=== PATIENT | female | born 1945 | race Caucasian/White ===

== ENCOUNTER 2021-11-29 12:15 | Emergency (ER) | payer BC, MEDICAID ==
[~2021-11-29] VITALS: Ht 154.9 cm; Wt 67.1 kg
[2021-11-29 12:15] VITALS: BP_SYST 167
[2021-11-29 13:19] VITALS: BP_SYST 151
== END 2021-11-29 13:17 | disposition home or self-care (01) ==
LOC: SED 12:15
DX: S09.90XA Unspecified injury of head, initial encounter (principal); X58.XXXA Exposure to other specified factors, initial encounter; Y93.89 Activity, other specified; Y92.89 Other specified places as the place of occurrence of the external cause; Y99.8 Other external cause status
CPT/HCPCS: 70450-TC; 76376; 99284

== ENCOUNTER 2023-01-25 13:12 | Inpatient (IN) | payer BC, MEDICAID ==
[~2023-01-25] VITALS: Ht 154.9 cm; Wt 75.9 kg
[~2023-01-25 13:12] MED LIST: ALEN70TA84 PO; AMIO100T4 PO; APIX2.5T PO; BENZ1LOZ73 PO; CALC1CAP19 PO; CHOL4PAC20 PO; DICL100G33 TP; FOLI-43 PO; FOLI0.8T42 PO; FURO-150 PO; HYD10 PO; IBUP-1970 PO; LEVO88TA5 PO; LIP40 PO; LOPE2CAP PO; METO25TA3 PO; NITSL SL; OMEP40CA20 PO; OXYB5TAB16 PO; POTA-197 PO; SACC250C3 PO; SPIR25TA6 PO; TRAM50TA2 PO; VITD2000 PO; XALEYE OP
[2023-01-25 13:20] VITALS: BP_SYST 126; PULSE 94; RESP 37; TEMP 100.5; O2SAT 96
[2023-01-25 14:40] LABS: HEMATOCRIT 28.5 % (36-48); HEMOGLOBIN 8.9 g/dL (12.0-16.0); MEAN CORPUSCULAR HEMOGLOBIN 30 pg (27-31); MEAN CORPUSCULAR HGB CONC 31 % (32-36); MEAN CORPUSCULAR VOLUME 96 fL (79.0-98.0); PLATELET COUNT (AUTO) 152 K/uL (130-430); RED BLOOD CELL COUNT(AUTO) 2.96 MIL/uL (4.2-6.2); WHITE BLOOD COUNT (AUTO) 12.5 K/uL (4.8-10.8)
[2023-01-25 14:49] LABS: ANION GAP 7 (5-15); CALCIUM 7.9 mg/dL (8.4-11.0); CARBON DIOXIDE 32 mmol/L (23-29); CHLORIDE 107 mmol/L (98-107); CREATININE 1.11 mg/dL (0.55-1.30); GLUCOSE 84 mg/dL (74-106); POTASSIUM 3.6 mmol/L (3.5-5.1); SODIUM SERUM 146 mmol/L (136-145); UREA NITROGEN, BLOOD 15 mg/dL (8-21)
[2023-01-25 14:52] LABS: INR 1.1 (0.8-1.2); PROTHROMBIN TIME 11.5 SECS (9.5-12.5)
[2023-01-25 15:03] LABS: BAND % (MANUAL) 3 % (0-6); BASOPHILS % (MANUAL) 0 % (0-2); EOSINOPHILS % (MANUAL) 0 % (0-7); LYMPHOCYTES % (MANUAL) 3 % (20-46); METAMYELOCYTES % 1 % (0-0); MONOCYTES % (MANUAL) 6 % (0-11); MYELOCYTES % 2 % (0-0)
[2023-01-25 15:04] LABS: ANISOCYTOSIS 1+; PLATELET ESTIMATE ADEQUATE (ADEQUATE)
[2023-01-25] MEDS ORDERED: guaiFENesin/DEXTROMETHORPHAN 10 ML UDC PO ONE (15:15)
[2023-01-25 15:23] LABS: ALANINE AMINOTRANSFERASE 58 U/L (12-78); ALBUMIN 2.6 g/dL (3.4-4.8); ASPARTATE AMINOTRANSFERASE 76 U/L (10-37); TOTAL BILIRUBIN 0.9 mg/dL (0.0-1.0); TOTAL PROTEIN, SERUM 6.1 g/dL (6.4-8.3)
[2023-01-25 15:26] LABS: INFLUENZA TYPE A positive (NEGATIVE)
[2023-01-25 15:30] LABS: INFLUENZA TYPE B POSITIVE (NEGATIVE)
[2023-01-25] MEDS ORDERED: OSELTAMIVIR PHOSPHATE 75 MG CAPSULE PO ONE (15:30)
[2023-01-25] MEDS ORDERED: FUROSEMIDE 20 MG/2 ML VIAL IVP ONE (15:45)
[2023-01-25 20:30] VITALS: BP_SYST 125; PULSE 78; RESP 18; TEMP 97.8; O2SAT 98
[2023-01-25] MEDS ORDERED: IBUPROFEN 800 MG TABLET PO PRN (23:45)
[2023-01-25] MEDS ORDERED: ONDANSETRON HCL 4 MG/2 ML VIAL IVP PRN (23:45)
[2023-01-25] MEDS ORDERED: NITROGLYCERIN 0.4 MG TAB.SUBL SL PRN (23:45)
[2023-01-25] MEDS ORDERED: traMADol HCL HCL 50 MG TABLET (ULTRAM) PO PRN (23:45)
[2023-01-25] MEDS ORDERED: IPRATROPIUM BROM 0.5 MG/2.5 ML VIAL.NEB (ATROVENT) INH PRN (23:45)
[2023-01-25] MEDS ORDERED: HYDROcodone/ACETAMIN 5-325 MG TAB (NORCO/ VICODIN) PO PRN (23:45)
[2023-01-25] MEDS ORDERED: oxyBUTYnin chloride 5 MG TABLET PO SCH (23:45)
[2023-01-25] MEDS ORDERED: ALBUTEROL SULFATE 0.083% 2.5 MG/3 ML VIAL.NEB INH PRN (23:45)
[2023-01-25] MEDS ORDERED: NALOXONE HCL 0.4 MG/ML AMP (NARCAN) IVP PRN ×2 (23:45)
[2023-01-25] MEDS ORDERED: BENZOCAINE/MENTHOL 1 EACH LOZENGE PO PRN (23:45)
[2023-01-25] MEDS ORDERED: HYDROcodone/ACETAMIN 10-325 MG TAB PO PRN (23:45)
[2023-01-25] MEDS ORDERED: ALENDRONATE SODIUM 70 MG TABLET (FOSAMAX) PO SCH (23:45)
[2023-01-25] MEDS ORDERED: LOPERAMIDE HCL 2 MG CAPSULE PO PRN (23:45)
[2023-01-25] MEDS ORDERED: ACETAMINOPHEN 325 MG TABLET PO PRN (23:45)
[2023-01-26] VITALS (27 sets, daily range): BP systolic 76–140; PULSE 70–190; RESP 20–39; TEMP 97.3–100.1; O2SAT 91–100
[2023-01-26] MEDS ORDERED: NON-FORMULARY MEDICATION (Diclofenac Sodium 1 APPLIC) TP SCH
[2023-01-26] MEDS ORDERED: dilTIAZem HCL IVP 5 MG/ML VIAL IVP PRN (04:45)
[2023-01-26] MEDS: NORMAL SALINE 5 ML DISP.SYRIN IVF SCH ×3 (05:15→23:44)
[2023-01-26] MEDS ORDERED: AMIODARONE HCL 150 MG in D5W 100 ML IV ONE (05:30)
[2023-01-26] MEDS: CARVEDILOL 3.125 MG TABLET (COREG) PO SCH ×3 (05:51→21:00)
[2023-01-26 05:58] LABS: BILIRUBIN,URINE NEGATIVE (NEGATIVE); CLARITY/URINE CLEAR (CLEAR); COLOR,URINE YELLOW (YELLOW); GLUCOSE,URINE NEGATIVE (NEGATIVE); KETONES,URINE NEGATIVE (NEGATIVE); LEUKOCYTE ESTERASE ,URINE TRACE (NEGATIVE); NITRITE, URINE NEGATIVE (NEGATIVE); PROTEIN URINE TRACE (NEGATIVE); UROBILINOGEN,URINE 0.2 (0.2-1.0)
[2023-01-26] MEDS ORDERED: AMIODARONE HCL 150 MG/3ML VIAL ONE (06:05)
[2023-01-26 06:07] LABS: BASOPHILS % (AUTO) 0.5 % (0.0-2.0); EOSINOPHILS % (AUTO) 0.5 % (0.0-4.0); HEMATOCRIT 28.5 % (36-48); HEMOGLOBIN 8.9 g/dL (12.0-16.0); LYMPHOCYTES % (AUTO) 10.5 % (20.5-51.5); MEAN CORPUSCULAR HEMOGLOBIN 30 pg (27-31); MEAN CORPUSCULAR HGB CONC 31 % (32-36); MEAN CORPUSCULAR VOLUME 96 fL (79.0-98.0); MONOCYTES # (AUTO) 0.4 K/uL (0.0-1.0); MONOCYTES % (AUTO) 4.5 % (1.7-9.3); NEUTROPHILS # (AUTO) 8.3 K/uL (1.8-7.7); PLATELET COUNT (AUTO) 142 K/uL (130-430); RED BLOOD CELL COUNT(AUTO) 2.98 MIL/uL (4.2-6.2); RED CELL DISTRIBUTION WIDTH 15.9 % (9.0-15.0); WHITE BLOOD COUNT (AUTO) 9.8 K/uL (4.8-10.8)
[2023-01-26 06:09] LABS: BLOOD, URINE TRACE (NEGATIVE)
[2023-01-26 06:15] LABS: BACTERIA,URINE FEW /HPF (None Seen)
[2023-01-26] MEDS ORDERED: AMIODARONE HCL 450 MG/9 ML VIAL IV ONE (06:47)
[2023-01-26] MEDS: AMIODARONE HCL 450 MG in D5W 241 ML IV SCH ×2 (06:58→16:01)
[2023-01-26] MEDS: LEVOTHYROXINE SODIUM 0.088 MG TABLET PO SCH ×2 (07:00→11:29)
[2023-01-26] MEDS ORDERED: ACETAMINOPHEN 325 MG TABLET PO PRN (07:00)
[2023-01-26] MEDS ORDERED: NS 1000 ML IV.SOLN IV ONE (07:15)
[2023-01-26] MEDS ORDERED: NS 500 ML IV ONE (07:30)
[2023-01-26 07:31] LABS: ANION GAP 10 (5-15); CALCIUM 7.8 mg/dL (8.4-11.0); CARBON DIOXIDE 31 mmol/L (23-29); CHLORIDE 101 mmol/L (98-107); CREATININE 1.12 mg/dL (0.55-1.30); GLUCOSE 68 mg/dL (74-106); POTASSIUM 3.2 mmol/L (3.5-5.1); SODIUM SERUM 142 mmol/L (136-145); UREA NITROGEN, BLOOD 18 mg/dL (8-21)
[2023-01-26] MEDS ORDERED: NOREPINEPHRINE BITARTRATE 4 MG in D5W 246 ML IV PRN (08:30)
[2023-01-26] MEDS ORDERED: METOPROLOL SUCCINATE 25 MG TAB.SR.24H (TOPROL XL) PO SCH (09:00)
[2023-01-26] MEDS ORDERED: FUROSEMIDE 20 MG TABLET PO SCH (09:00)
[2023-01-26] MEDS: CALCIUM CARBONATE/VITAMIN D3 1 TAB TABLET PO SCH ×3 (09:00→23:43)
[2023-01-26] MEDS: HYDROCORTISONE 10 MG TABLET (CORTEF) PO SCH ×2 (09:00→23:40)
[2023-01-26] MEDS: LACTOBACILLUS RHAMNOSUS GG 1 CAP CAPSULE PO SCH ×2 (09:00→23:40)
[2023-01-26] MEDS ORDERED: POTASSIUM CHLORIDE 40 MEQ in NS 250 ML IV ONE (09:00)
[2023-01-26] MEDS: FOLIC ACID 1 MG TABLET PO SCH (11:03)
[2023-01-26] MEDS: NEPHROVITE, (FOLIC ACID/VITAMIN B COMP W-C 1 TAB) PO SCH (11:03)
[2023-01-26] MEDS: POTASSIUM CHLORIDE 20 MEQ TAB.PRT.SR PO SCH (11:04)
[2023-01-26] MEDS: CHOLECALCIFEROL (VITAMIN D3) 2,000 UNIT TABLET PO SCH (11:04)
[2023-01-26] MEDS: AMIODARONE HCL 200 MG TABLET PO SCH (11:04)
[2023-01-26] MEDS: LOSARTAN POTASSIUM 25 MG TABLET PO SCH (11:04)
[2023-01-26] MEDS: PANTOPRAZOLE SODIUM 40 MG TAB PO SCH (11:04)
[2023-01-26] MEDS: APIXABAN 2.5 MG TABLET PO SCH ×2 (11:05→23:41)
[2023-01-26] MEDS: SPIRONOLACTONE 25 MG TABLET (ALDACTONE) PO SCH (11:30)
[2023-01-26] MEDS: CHOLESTYRAMINE/SUCROSE 4 GM/PACKET PO SCH (11:31)
[2023-01-26] MEDS ORDERED: DEXTROSE 50% JECT 50 ML DISP.SYRIN IVP PRN (13:30)
[2023-01-26] MEDS ORDERED: MAGNESIUM SULFATE 1 GM/2 ML VIAL IVP ONE (15:00)
[2023-01-26] MEDS ORDERED: MAGNESIUM SUL 2 GM/50 ML PREMIX IV ONE (15:30)
[2023-01-26 16:33] LABS: INR 1.5 (0.8-1.2); PROTHROMBIN TIME 15.3 SECS (9.5-12.5)
[2023-01-26] MEDS: dilTIAZem HCL IVP 5 MG/ML VIAL IVP PRN (17:40)
[2023-01-26] MEDS ORDERED: ATORVASTATIN 20 MG TABLET PO SCH (21:00)
[2023-01-26] MEDS ORDERED: AZITHROMYCIN 500 MG/VIAL (ZITHROMAX) IV ONE (23:10)
[2023-01-26] MEDS ORDERED: cefTRIAXone 1 GM VIAL ONE (23:10)
[2023-01-26] MEDS: AZITHROMYCIN 500 MG in NS 250 ML IV SCH (23:37)
[2023-01-26] MEDS: LATANOPROST 2.5 ML DROPS (XALATAN) OP SCH (23:38)
[2023-01-26] MEDS: ATORVASTATIN 20 MG TABLET PO SCH (23:42)
[2023-01-26] MEDS: OSELTAMIVIR PHOSPHATE 75 MG CAPSULE PO SCH (23:43)
[2023-01-27] VITALS (28 sets, daily range): BP systolic 83–141; PULSE 60–86; RESP 18–44; TEMP 97.3–98.8; O2SAT 90–99
[2023-01-27 04:33] LABS: BASOPHILS # (AUTO) 0.1 K/uL (0.0-0.2); BASOPHILS % (AUTO) 0.5 % (0.0-2.0); EOSINOPHILS % (AUTO) 0.1 % (0.0-4.0); HEMATOCRIT 27.5 % (36-48); HEMOGLOBIN 8.5 g/dL (12.0-16.0); LYMPHOCYTES # (AUTO) 0.5 K/uL (1.0-5.5); LYMPHOCYTES % (AUTO) 3.6 % (20.5-51.5); MEAN CORPUSCULAR HEMOGLOBIN 29 pg (27-31); MEAN CORPUSCULAR HGB CONC 31 % (32-36); MEAN CORPUSCULAR VOLUME 95 fL (79.0-98.0); MONOCYTES # (AUTO) 0.6 K/uL (0.0-1.0); MONOCYTES % (AUTO) 4.4 % (1.7-9.3); NEUTROPHILS # (AUTO) 11.6 K/uL (1.8-7.7); NEUTROPHILS % (AUTO) 91.4 % (40.0-70.0); PLATELET COUNT (AUTO) 156 K/uL (130-430); RED BLOOD CELL COUNT(AUTO) 2.91 MIL/uL (4.2-6.2); RED CELL DISTRIBUTION WIDTH 16.4 % (9.0-15.0); WHITE BLOOD COUNT (AUTO) 12.7 K/uL (4.8-10.8)
[2023-01-27 04:45] LABS: ERYTHROCYTE SEDIMENTATION RATE 50 MM/HR (0-20)
[2023-01-27 04:58] LABS: ALANINE AMINOTRANSFERASE 38 U/L (12-78); ALBUMIN 1.9 g/dL (3.4-4.8); ANION GAP 8 (5-15); ASPARTATE AMINOTRANSFERASE 61 U/L (10-37); CALCIUM 7.6 mg/dL (8.4-11.0); CARBON DIOXIDE 27 mmol/L (23-29); CHLORIDE 101 mmol/L (98-107); CREATININE 1.23 mg/dL (0.55-1.30); GLUCOSE 139 mg/dL (74-106); POTASSIUM 5.6 mmol/L (3.5-5.1); SODIUM SERUM 136 mmol/L (136-145); TOTAL BILIRUBIN 0.7 mg/dL (0.0-1.0); TOTAL PROTEIN, SERUM 5.4 g/dL (6.4-8.3); UREA NITROGEN, BLOOD 19 mg/dL (8-21)
[2023-01-27] MEDS: NORMAL SALINE 5 ML DISP.SYRIN IVF SCH ×3 (05:15→21:15)
[2023-01-27] MEDS: LEVOTHYROXINE SODIUM 0.088 MG TABLET PO SCH (06:20)
[2023-01-27] MEDS: DEXAMETHASONE SOD PHOSPHATE 10 MG/ML VIAL IVP SCH ×2 (09:00→09:39)
[2023-01-27] MEDS: POTASSIUM CHLORIDE 20 MEQ TAB.PRT.SR PO SCH (09:00)
[2023-01-27] MEDS: CARVEDILOL 3.125 MG TABLET (COREG) PO SCH ×2 (09:26→21:11)
[2023-01-27] MEDS: FOLIC ACID 1 MG TABLET PO SCH (09:28)
[2023-01-27] MEDS: CALCIUM CARBONATE/VITAMIN D3 1 TAB TABLET PO SCH ×3 (09:28→21:14)
[2023-01-27] MEDS: HYDROCORTISONE 10 MG TABLET (CORTEF) PO SCH ×2 (09:28→21:13)
[2023-01-27] MEDS: SPIRONOLACTONE 25 MG TABLET (ALDACTONE) PO SCH (09:28)
[2023-01-27] MEDS: CHOLESTYRAMINE/SUCROSE 4 GM/PACKET PO SCH (09:29)
[2023-01-27] MEDS: AMIODARONE HCL 200 MG TABLET PO SCH (09:29)
[2023-01-27] MEDS: PANTOPRAZOLE SODIUM 40 MG TAB PO SCH (09:29)
[2023-01-27] MEDS: NEPHROVITE, (FOLIC ACID/VITAMIN B COMP W-C 1 TAB) PO SCH (09:30)
[2023-01-27] MEDS: LOSARTAN POTASSIUM 25 MG TABLET PO SCH (09:31)
[2023-01-27] MEDS: APIXABAN 2.5 MG TABLET PO SCH ×2 (09:31→21:12)
[2023-01-27] MEDS: LACTOBACILLUS RHAMNOSUS GG 1 CAP CAPSULE PO SCH ×2 (09:31→21:13)
[2023-01-27] MEDS: CHOLECALCIFEROL (VITAMIN D3) 2,000 UNIT TABLET PO SCH (09:33)
[2023-01-27] MEDS: OSELTAMIVIR PHOSPHATE 75 MG CAPSULE PO SCH ×2 (09:33→21:11)
[2023-01-27 10:40] LABS: BLOOD GAS BASE EXCESS 3.3 mmol/L (-3.0-3.0); BLOOD GAS HCO3 26.8 mmol/L (21.0-27.0); BLOOD GAS PCO2 37.4 mmHg (35.0-45.0); BLOOD GAS PH 7.473 (7.350-7.450); BLOOD GAS PO2 59.2 mmHg (75.0-100.0)
[2023-01-27 10:41] LABS: ABG O2 SAT% ESTIMATE 92.3 % (94.0-100.0); ALLEN'S TEST POSITIVE (P)
[2023-01-27] MEDS ORDERED: FUROSEMIDE 40 MG/4 ML VIAL IVP ONE (11:00)
[2023-01-27] MEDS: IPRATROPIUM/ALBUTEROL SULFATE 3 ML AMPUL.NEB (DUONEB) INH SCH ×4 (11:00→23:23)
[2023-01-27] MEDS: MICAFUNGIN SODIUM 100 MG in NS 100 ML IV SCH (12:17)
[2023-01-27] MEDS ORDERED: iohexoL 350 mgI/mL, 100 ML INFUS..BTL IV ONE (17:04)
[2023-01-27] MEDS: LORazepam 2 MG/ML VIAL IVP PRN (21:09)
[2023-01-27] MEDS: LATANOPROST 2.5 ML DROPS (XALATAN) OP SCH (21:09)
[2023-01-27] MEDS: ATORVASTATIN 20 MG TABLET PO SCH (21:13)
[2023-01-27] MEDS: AZITHROMYCIN 500 MG in NS 250 ML IV SCH (21:14)
[2023-01-28] VITALS (29 sets, daily range): BP systolic 77–134; PULSE 63–124; RESP 12–37; TEMP 97.3–98.1; O2SAT 89–99
[2023-01-28] MEDS: IPRATROPIUM/ALBUTEROL SULFATE 3 ML AMPUL.NEB (DUONEB) INH SCH ×6 (03:00→23:00)
[2023-01-28] MEDS: NORMAL SALINE 5 ML DISP.SYRIN IVF SCH ×3 (05:13→22:00)
[2023-01-28] MEDS: LEVOTHYROXINE SODIUM 0.088 MG TABLET PO SCH (08:17)
[2023-01-28] MEDS: CARVEDILOL 3.125 MG TABLET (COREG) PO SCH ×2 (09:00→21:00)
[2023-01-28 09:04] LABS: BASOPHILS # (AUTO) 0.1 K/uL (0.0-0.2); HEMATOCRIT 24.3 % (36-48); HEMOGLOBIN 7.7 g/dL (12.0-16.0); LYMPHOCYTES # (AUTO) 0.4 K/uL (1.0-5.5); LYMPHOCYTES % (AUTO) 4.5 % (20.5-51.5); MEAN CORPUSCULAR HEMOGLOBIN 30 pg (27-31); MEAN CORPUSCULAR HGB CONC 32 % (32-36); MEAN CORPUSCULAR VOLUME 94 fL (79.0-98.0); MONOCYTES # (AUTO) 0.3 K/uL (0.0-1.0); MONOCYTES % (AUTO) 3.7 % (1.7-9.3); NEUTROPHILS # (AUTO) 8.5 K/uL (1.8-7.7); NEUTROPHILS % (AUTO) 90.8 % (40.0-70.0); PLATELET COUNT (AUTO) 147 K/uL (130-430); RED BLOOD CELL COUNT(AUTO) 2.59 MIL/uL (4.2-6.2); RED CELL DISTRIBUTION WIDTH 15.6 % (9.0-15.0); WHITE BLOOD COUNT (AUTO) 9.3 K/uL (4.8-10.8)
[2023-01-28 09:20] LABS: ANION GAP 9 (5-15); CALCIUM 7.5 mg/dL (8.4-11.0); CARBON DIOXIDE 28 mmol/L (23-29); CHLORIDE 102 mmol/L (98-107); CREATININE 1.13 mg/dL (0.55-1.30); GLUCOSE 108 mg/dL (74-106); POTASSIUM 3.5 mmol/L (3.5-5.1); SODIUM SERUM 139 mmol/L (136-145); UREA NITROGEN, BLOOD 21 mg/dL (8-21)
[2023-01-28 09:25] LABS: ALANINE AMINOTRANSFERASE 33 U/L (12-78); ALBUMIN 1.9 g/dL (3.4-4.8); ASPARTATE AMINOTRANSFERASE 58 U/L (10-37); TOTAL BILIRUBIN 0.5 mg/dL (0.0-1.0); TOTAL PROTEIN, SERUM 5.4 g/dL (6.4-8.3)
[2023-01-28] MEDS: LACTOBACILLUS RHAMNOSUS GG 1 CAP CAPSULE PO SCH ×2 (09:42→21:00)
[2023-01-28] MEDS: CALCIUM CARBONATE/VITAMIN D3 1 TAB TABLET PO SCH ×3 (09:43→21:00)
[2023-01-28] MEDS: NEPHROVITE, (FOLIC ACID/VITAMIN B COMP W-C 1 TAB) PO SCH (09:44)
[2023-01-28] MEDS: POTASSIUM CHLORIDE 20 MEQ TAB.PRT.SR PO SCH (09:46)
[2023-01-28] MEDS: APIXABAN 2.5 MG TABLET PO SCH ×2 (09:47→21:00)
[2023-01-28] MEDS: OSELTAMIVIR PHOSPHATE 75 MG CAPSULE PO SCH ×2 (09:47→21:00)
[2023-01-28] MEDS: CHOLECALCIFEROL (VITAMIN D3) 2,000 UNIT TABLET PO SCH (09:48)
[2023-01-28] MEDS: AMIODARONE HCL 200 MG TABLET PO SCH (09:52)
[2023-01-28] MEDS: FUROSEMIDE 40 MG/4 ML VIAL IVP SCH (09:52)
[2023-01-28] MEDS: CHOLESTYRAMINE/SUCROSE 4 GM/PACKET PO SCH (09:53)
[2023-01-28] MEDS: DEXAMETHASONE SOD PHOSPHATE 10 MG/ML VIAL IVP SCH (09:53)
[2023-01-28] MEDS: PANTOPRAZOLE SODIUM 40 MG TAB PO SCH (09:53)
[2023-01-28] MEDS: HYDROCORTISONE 10 MG TABLET (CORTEF) PO SCH ×2 (09:54→21:00)
[2023-01-28] MEDS: FOLIC ACID 1 MG TABLET PO SCH (09:56)
[2023-01-28] MEDS: MICAFUNGIN SODIUM 100 MG in NS 100 ML IV SCH (12:00)
[2023-01-28] MEDS: dilTIAZem HCL IVP 5 MG/ML VIAL IVP PRN (20:00)
[2023-01-28] MEDS: LORazepam 2 MG/ML VIAL IVP PRN (20:00)
[2023-01-28] MEDS: ATORVASTATIN 20 MG TABLET PO SCH (21:00)
[2023-01-28] MEDS: LATANOPROST 2.5 ML DROPS (XALATAN) OP SCH (21:00)
[2023-01-29] VITALS (27 sets, daily range): BP systolic 95–145; PULSE 73–117; RESP 18–60; TEMP 96.6–98.2; O2SAT 89–100
[2023-01-29] MEDS: IPRATROPIUM/ALBUTEROL SULFATE 3 ML AMPUL.NEB (DUONEB) INH SCH ×6 (03:00→23:27)
[2023-01-29] MEDS: NORMAL SALINE 5 ML DISP.SYRIN IVF SCH ×3 (05:02→21:22)
[2023-01-29 05:28] LABS: BASOPHILS % (AUTO) 0.1 % (0.0-2.0); HEMATOCRIT 23.5 % (36-48); HEMOGLOBIN 7.5 g/dL (12.0-16.0); LYMPHOCYTES # (AUTO) 0.5 K/uL (1.0-5.5); LYMPHOCYTES % (AUTO) 5.2 % (20.5-51.5); MEAN CORPUSCULAR HEMOGLOBIN 30 pg (27-31); MEAN CORPUSCULAR HGB CONC 32 % (32-36); MEAN CORPUSCULAR VOLUME 93 fL (79.0-98.0); MONOCYTES # (AUTO) 0.5 K/uL (0.0-1.0); MONOCYTES % (AUTO) 5.2 % (1.7-9.3); NEUTROPHILS # (AUTO) 8.9 K/uL (1.8-7.7); NEUTROPHILS % (AUTO) 89.5 % (40.0-70.0); PLATELET COUNT (AUTO) 146 K/uL (130-430); RED BLOOD CELL COUNT(AUTO) 2.53 MIL/uL (4.2-6.2); RED CELL DISTRIBUTION WIDTH 15.9 % (9.0-15.0)
[2023-01-29 05:40] LABS: ANION GAP 7 (5-15); CALCIUM 7.4 mg/dL (8.4-11.0); CARBON DIOXIDE 30 mmol/L (23-29); CHLORIDE 102 mmol/L (98-107); GLUCOSE 133 mg/dL (74-106); POTASSIUM 3.5 mmol/L (3.5-5.1); SODIUM SERUM 139 mmol/L (136-145); UREA NITROGEN, BLOOD 22 mg/dL (8-21)
[2023-01-29] MEDS: LORazepam 2 MG/ML VIAL IVP PRN (05:56)
[2023-01-29] MEDS: LEVOTHYROXINE SODIUM 0.088 MG TABLET PO SCH (08:01)
[2023-01-29] MEDS: OSELTAMIVIR PHOSPHATE 75 MG CAPSULE PO SCH ×2 (09:35→21:24)
[2023-01-29] MEDS: HYDROCORTISONE 10 MG TABLET (CORTEF) PO SCH ×2 (09:35→21:23)
[2023-01-29] MEDS: APIXABAN 2.5 MG TABLET PO SCH ×2 (09:37→21:26)
[2023-01-29] MEDS: CARVEDILOL 3.125 MG TABLET (COREG) PO SCH ×2 (09:38→21:23)
[2023-01-29] MEDS: NEPHROVITE, (FOLIC ACID/VITAMIN B COMP W-C 1 TAB) PO SCH (09:38)
[2023-01-29] MEDS: LACTOBACILLUS RHAMNOSUS GG 1 CAP CAPSULE PO SCH ×2 (09:38→21:24)
[2023-01-29] MEDS: AMIODARONE HCL 200 MG TABLET PO SCH (09:39)
[2023-01-29] MEDS: FUROSEMIDE 40 MG/4 ML VIAL IVP SCH (09:46)
[2023-01-29] MEDS: DEXAMETHASONE SOD PHOSPHATE 10 MG/ML VIAL IVP SCH (09:47)
[2023-01-29] MEDS: FOLIC ACID 1 MG TABLET PO SCH (09:47)
[2023-01-29] MEDS: POTASSIUM CHLORIDE 20 MEQ TAB.PRT.SR PO SCH (09:48)
[2023-01-29] MEDS: CALCIUM CARBONATE/VITAMIN D3 1 TAB TABLET PO SCH ×3 (09:48→21:24)
[2023-01-29] MEDS: PANTOPRAZOLE SODIUM 40 MG TAB PO SCH (09:50)
[2023-01-29] MEDS: CHOLESTYRAMINE/SUCROSE 4 GM/PACKET PO SCH (09:51)
[2023-01-29] MEDS: CHOLECALCIFEROL (VITAMIN D3) 2,000 UNIT TABLET PO SCH (09:53)
[2023-01-29] MEDS: MICAFUNGIN SODIUM 100 MG in NS 100 ML IV SCH (11:51)
[2023-01-29] MEDS: AMPICILLIN SODIUM 1 GM in NS 50 ML IV SCH ×2 (14:23→18:18)
[2023-01-29] MEDS: LATANOPROST 2.5 ML DROPS (XALATAN) OP SCH (20:46)
[2023-01-29] MEDS: ATORVASTATIN 20 MG TABLET PO SCH (21:24)
[2023-01-30] VITALS (10 sets, daily range): BP systolic 115–136; PULSE 72–80; RESP 16–20; TEMP 96.2–97.7; O2SAT 94–100
[2023-01-30] MEDS: AMPICILLIN SODIUM 1 GM in NS 50 ML IV SCH ×4 (00:32→17:26)
[2023-01-30] MEDS: IPRATROPIUM/ALBUTEROL SULFATE 3 ML AMPUL.NEB (DUONEB) INH SCH ×6 (03:00→23:04)
[2023-01-30] MEDS: NORMAL SALINE 5 ML DISP.SYRIN IVF SCH ×3 (05:10→22:57)
[2023-01-30] MEDS: LEVOTHYROXINE SODIUM 0.088 MG TABLET PO SCH (06:06)
[2023-01-30 08:09] LABS: ANION GAP 8 (5-15); CALCIUM 7.4 mg/dL (8.4-11.0); CARBON DIOXIDE 30 mmol/L (23-29); CHLORIDE 100 mmol/L (98-107); CREATININE 1.12 mg/dL (0.55-1.30); GLUCOSE 126 mg/dL (74-106); POTASSIUM 3.7 mmol/L (3.5-5.1); SODIUM SERUM 138 mmol/L (136-145); UREA NITROGEN, BLOOD 24 mg/dL (8-21)
[2023-01-30] MEDS: HYDROCORTISONE 10 MG TABLET (CORTEF) PO SCH ×2 (09:47→20:27)
[2023-01-30] MEDS: FOLIC ACID 1 MG TABLET PO SCH (09:47)
[2023-01-30] MEDS: PANTOPRAZOLE SODIUM 40 MG TAB PO SCH (09:47)
[2023-01-30] MEDS: CHOLECALCIFEROL (VITAMIN D3) 2,000 UNIT TABLET PO SCH (09:47)
[2023-01-30] MEDS: POTASSIUM CHLORIDE 20 MEQ TAB.PRT.SR PO SCH (09:47)
[2023-01-30] MEDS: OSELTAMIVIR PHOSPHATE 75 MG CAPSULE PO SCH ×2 (09:47→20:27)
[2023-01-30] MEDS: LACTOBACILLUS RHAMNOSUS GG 1 CAP CAPSULE PO SCH ×2 (09:47→20:27)
[2023-01-30] MEDS: CALCIUM CARBONATE/VITAMIN D3 1 TAB TABLET PO SCH ×3 (09:51→20:28)
[2023-01-30] MEDS: NEPHROVITE, (FOLIC ACID/VITAMIN B COMP W-C 1 TAB) PO SCH (09:51)
[2023-01-30] MEDS: AMIODARONE HCL 200 MG TABLET PO SCH (09:51)
[2023-01-30] MEDS: CARVEDILOL 3.125 MG TABLET (COREG) PO SCH ×2 (09:52→20:27)
[2023-01-30] MEDS: CHOLESTYRAMINE/SUCROSE 4 GM/PACKET PO SCH (09:52)
[2023-01-30] MEDS: APIXABAN 2.5 MG TABLET PO SCH ×2 (10:01→20:33)
[2023-01-30] MEDS: DEXAMETHASONE SOD PHOSPHATE 10 MG/ML VIAL IVP SCH (10:09)
[2023-01-30] MEDS: FUROSEMIDE 40 MG/4 ML VIAL IVP SCH (10:09)
[2023-01-30] MEDS: MICAFUNGIN SODIUM 100 MG in NS 100 ML IV SCH (11:59)
[2023-01-30] MEDS: ATORVASTATIN 20 MG TABLET PO SCH (20:27)
[2023-01-30] MEDS: LATANOPROST 2.5 ML DROPS (XALATAN) OP SCH (20:54)
[2023-01-31] VITALS (8 sets, daily range): BP systolic 124–147; PULSE 69–83; RESP 16–20; TEMP 97–98.4; O2SAT 97–99
[2023-01-31] MEDS: IPRATROPIUM/ALBUTEROL SULFATE 3 ML AMPUL.NEB (DUONEB) INH SCH ×6 (02:32→23:13)
[2023-01-31] MEDS: AMPICILLIN SODIUM 1 GM in NS 50 ML IV SCH ×4 (03:19→18:40)
[2023-01-31] MEDS: LEVOTHYROXINE SODIUM 0.088 MG TABLET PO SCH (06:31)
[2023-01-31] MEDS: NORMAL SALINE 5 ML DISP.SYRIN IVF SCH ×3 (06:34→21:47)
[2023-01-31] MEDS: FOLIC ACID 1 MG TABLET PO SCH (09:27)
[2023-01-31] MEDS: NEPHROVITE, (FOLIC ACID/VITAMIN B COMP W-C 1 TAB) PO SCH (09:28)
[2023-01-31] MEDS: CALCIUM CARBONATE/VITAMIN D3 1 TAB TABLET PO SCH ×3 (09:28→21:46)
[2023-01-31] MEDS: APIXABAN 2.5 MG TABLET PO SCH ×2 (09:28→21:58)
[2023-01-31] MEDS: CHOLECALCIFEROL (VITAMIN D3) 2,000 UNIT TABLET PO SCH (09:28)
[2023-01-31] MEDS: LACTOBACILLUS RHAMNOSUS GG 1 CAP CAPSULE PO SCH ×2 (09:29→21:46)
[2023-01-31] MEDS: AMIODARONE HCL 200 MG TABLET PO SCH (09:29)
[2023-01-31] MEDS: CARVEDILOL 3.125 MG TABLET (COREG) PO SCH ×2 (09:29→21:56)
[2023-01-31] MEDS: FUROSEMIDE 40 MG/4 ML VIAL IVP SCH (09:30)
[2023-01-31] MEDS: DEXAMETHASONE SOD PHOSPHATE 10 MG/ML VIAL IVP SCH (09:30)
[2023-01-31] MEDS: CHOLESTYRAMINE/SUCROSE 4 GM/PACKET PO SCH (09:41)
[2023-01-31] MEDS: HYDROCORTISONE 10 MG TABLET (CORTEF) PO SCH ×2 (10:11→21:46)
[2023-01-31] MEDS: OSELTAMIVIR PHOSPHATE 75 MG CAPSULE PO SCH (10:11)
[2023-01-31] MEDS: POTASSIUM CHLORIDE 20 MEQ TAB.PRT.SR PO SCH (10:11)
[2023-01-31] MEDS: PANTOPRAZOLE SODIUM 40 MG TAB PO SCH (10:16)
[2023-01-31] MEDS: dilTIAZem HCL IVP 5 MG/ML VIAL IVP PRN (11:18)
[2023-01-31] MEDS ORDERED: COR3.125 PO (12:57)
[2023-01-31] MEDS ORDERED: AMOX-423 PO (13:00)
[2023-01-31] MEDS: LATANOPROST 2.5 ML DROPS (XALATAN) OP SCH (21:00)
[2023-01-31] MEDS: ATORVASTATIN 20 MG TABLET PO SCH (21:46)
[2023-02-01] VITALS (7 sets, daily range): BP systolic 153–155; PULSE 69–70; RESP 12–20; TEMP 97–97.9; O2SAT 92–98
[2023-02-01] MEDS: IPRATROPIUM/ALBUTEROL SULFATE 3 ML AMPUL.NEB (DUONEB) INH SCH ×2 (03:31→08:23)
[2023-02-01] MEDS: NORMAL SALINE 5 ML DISP.SYRIN IVF SCH (06:00)
[2023-02-01] MEDS: AMPICILLIN SODIUM 1 GM in NS 50 ML IV SCH ×3 (06:00)
[2023-02-01] MEDS: LEVOTHYROXINE SODIUM 0.088 MG TABLET PO SCH (07:00)
[2023-02-01] MEDS: NEPHROVITE, (FOLIC ACID/VITAMIN B COMP W-C 1 TAB) PO SCH (09:46)
[2023-02-01] MEDS: CHOLESTYRAMINE/SUCROSE 4 GM/PACKET PO SCH (09:46)
[2023-02-01] MEDS: POTASSIUM CHLORIDE 20 MEQ TAB.PRT.SR PO SCH (09:46)
[2023-02-01] MEDS: CALCIUM CARBONATE/VITAMIN D3 1 TAB TABLET PO SCH (09:46)
[2023-02-01] MEDS: PANTOPRAZOLE SODIUM 40 MG TAB PO SCH (09:46)
[2023-02-01] MEDS: APIXABAN 2.5 MG TABLET PO SCH (09:47)
[2023-02-01] MEDS: LACTOBACILLUS RHAMNOSUS GG 1 CAP CAPSULE PO SCH (09:48)
[2023-02-01] MEDS: AMIODARONE HCL 200 MG TABLET PO SCH (09:48)
[2023-02-01] MEDS: CARVEDILOL 3.125 MG TABLET (COREG) PO SCH (09:48)
[2023-02-01] MEDS: FUROSEMIDE 40 MG/4 ML VIAL IVP SCH (09:48)
[2023-02-01] MEDS: HYDROCORTISONE 10 MG TABLET (CORTEF) PO SCH (09:49)
[2023-02-01] MEDS: CHOLECALCIFEROL (VITAMIN D3) 2,000 UNIT TABLET PO SCH (09:49)
[2023-02-01] MEDS: FOLIC ACID 1 MG TABLET PO SCH (09:50)
[2023-02-03 06:06] LABS: COCCIDIOIDES AB IGG 0.2 IV (<=0.9); COCCIDIOIDES AB IGM 0.4 IV (<=0.9)
== END 2023-02-01 11:47 | DRG 193 ==
LOC: SED 13:12 → STU 19:15 → SIC 20:18 → STU 20:23 → SIC 01-26 05:23 → STU 01-29 18:01
PROVIDERS: ADMIT Specialist; ATTEND Specialist
PROC: 5A0945A Assistance with Respiratory Ventilation, 24-96 Consecutive Hours, High Flow/Velocity Cannula (ICD-10-PCS; principal; 2023-01-26)
PROC: 02HV33Z Insertion of Infusion Device into Superior Vena Cava, Percutaneous Approach (ICD-10-PCS; 2023-01-26)
PROC: B548ZZA Ultrasonography of Superior Vena Cava, Guidance (ICD-10-PCS; 2023-01-26)
DX: J10.00 Influenza due to other identified influenza virus with unspecified type of pneumonia (principal); E43 Unspecified severe protein-calorie malnutrition; I21.A1 Myocardial infarction type 2; J96.01 Acute respiratory failure with hypoxia; J44.1 Chronic obstructive pulmonary disease with (acute) exacerbation; E87.0 Hyperosmolality and hypernatremia; J44.0 Chronic obstructive pulmonary disease with (acute) lower respiratory infection; E27.40 Unspecified adrenocortical insufficiency; N39.0 Urinary tract infection, site not specified; I25.10 Atherosclerotic heart disease of native coronary artery without angina pectoris; I10 Essential (primary) hypertension; E78.5 Hyperlipidemia, unspecified; B95.2 Enterococcus as the cause of diseases classified elsewhere; E88.09 Other disorders of plasma-protein metabolism, not elsewhere classified; Z20.822 Contact with and (suspected) exposure to COVID-19; D64.9 Anemia, unspecified; I48.91 Unspecified atrial fibrillation; E87.5 Hyperkalemia; K21.9 Gastro-esophageal reflux disease without esophagitis; Z79.899 Other long term (current) drug therapy; Z87.891 Personal history of nicotine dependence; Z86.73 Personal history of transient ischemic attack (TIA), and cerebral infarction without residual deficits; Z79.01 Long term (current) use of anticoagulants; Z74.01 Bed confinement status
CPT/HCPCS: 36415; 36600; 71045; 71275; 76376; 80048; 80053; 81000; 82803; 82962; 83605; 83735; 83880; 84100; 84484; 85007; 85025; 85027; 85379; 85610-TC; 85651-TC; 85730-TC; 86635; 86738; 87040; 87081; 87086; 87186-TC; 87305; 87449; 93005; 93306; 94640; 94760; 96374; 97110-GP; 97530-GP; 99285; C1751; G0378; G9035; J0282; J0290; J0456; J0696; J1100; J1940; J2060; J2248; J3475; J3480; J3490; J7030; J7040; J7050; J7060; J7613; Q9967

== ENCOUNTER 2023-05-20 17:27 | Inpatient (IN) | payer BC, MEDICAID ==
[~2023-05-20] VITALS: Ht 154.9 cm; Wt 64.9 kg
[~2023-05-20 17:27] MED LIST changes: +AMOX-423 PO; +COR3.125 PO; -DICL100G33 TP; +DICL100G60 TP; -IBUP-1970 PO; -METO25TA3 PO
[2023-05-20 17:32] VITALS: BP_SYST 160; PULSE 69; RESP 18; TEMP 98.2; O2SAT 100
[2023-05-20] MEDS ORDERED: MORPHINE 2 MG/ML INJ. SYRINGE IVP ONE (18:30)
[2023-05-20] MEDS ORDERED: NACL 0.9% 1,000 ML IV ONE (18:30)
[2023-05-20] MEDS ORDERED: ONDANSETRON HCL 4 MG/2 ML VIAL IVP ONE (18:30)
[2023-05-20 20:22] LABS: BASOPHILS % (AUTO) 0.2 % (0.0-2.0); EOSINOPHILS % (AUTO) 0.1 % (0.0-4.0); HEMOGLOBIN 9.2 g/dL (12.0-16.0); LYMPHOCYTES # (AUTO) 0.6 K/uL (1.0-5.5); LYMPHOCYTES % (AUTO) 4.1 % (20.5-51.5); MEAN CORPUSCULAR HEMOGLOBIN 25 pg (27-31); MEAN CORPUSCULAR HGB CONC 31 % (32-36); MEAN CORPUSCULAR VOLUME 82 fL (79.0-98.0); MONOCYTES # (AUTO) 0.7 K/uL (0.0-1.0); MONOCYTES % (AUTO) 4.9 % (1.7-9.3); NEUTROPHILS # (AUTO) 13.1 K/uL (1.8-7.7); NEUTROPHILS % (AUTO) 90.7 % (40.0-70.0); PLATELET COUNT (AUTO) 113 K/uL (130-430); RED BLOOD CELL COUNT(AUTO) 3.66 MIL/uL (4.2-6.2); RED CELL DISTRIBUTION WIDTH 21.4 % (9.0-15.0); WHITE BLOOD COUNT (AUTO) 14.5 K/uL (4.8-10.8)
[2023-05-20 20:35] LABS: BILIRUBIN,URINE NEGATIVE (NEGATIVE); CLARITY/URINE SL CLOUDY (CLEAR); COLOR,URINE YELLOW (YELLOW); GLUCOSE,URINE NEGATIVE (NEGATIVE); KETONES,URINE NEGATIVE (NEGATIVE); LEUKOCYTE ESTERASE ,URINE NEGATIVE (NEGATIVE); NITRITE, URINE POSITIVE (NEGATIVE); PROTEIN URINE NEGATIVE (NEGATIVE); UROBILINOGEN,URINE 0.2 (0.2-1.0)
[2023-05-20 20:44] LABS: BLOOD, URINE TRACE (NEGATIVE)
[2023-05-20 20:45] LABS: ALANINE AMINOTRANSFERASE 44 U/L (12-78); ALBUMIN 3.2 g/dL (3.4-4.8); ANION GAP 9 (5-15); ASPARTATE AMINOTRANSFERASE 57 U/L (10-37); CALCIUM 8.7 mg/dL (8.4-11.0); CARBON DIOXIDE 27 mmol/L (23-29); CHLORIDE 108 mmol/L (98-107); CREATININE 1.24 mg/dL (0.55-1.30); GLUCOSE 93 mg/dL (74-106); LIPASE 32 U/L (16-77); POTASSIUM 3.2 mmol/L (3.5-5.1); SODIUM SERUM 144 mmol/L (136-145); TOTAL BILIRUBIN 0.9 mg/dL (0.0-1.0); TOTAL PROTEIN, SERUM 6.4 g/dL (6.4-8.3); UREA NITROGEN, BLOOD 19 mg/dL (8-21)
[2023-05-20 21:28] LABS: BACTERIA,URINE MANY /HPF (None Seen); WBC,URINE 0-3 /HPF (0-3)
[2023-05-20] MEDS ORDERED: FUROSEMIDE 40 MG/4 ML VIAL IVP ONE (21:30)
[2023-05-21] VITALS (7 sets, daily range): BP systolic 147–167; PULSE 66–78; RESP 16–20; TEMP 97.1–99.9; O2SAT 96–100
[2023-05-21 00:11] LABS: INFLUENZA TYPE A POSITIVE (NEGATIVE)
[2023-05-21 00:13] LABS: INFLUENZA TYPE B POSITIVE (NEGATIVE)
[2023-05-21] MEDS ORDERED: POTASSIUM CHLORIDE 20 MEQ TAB.PRT.SR PO ONE (01:45)
[2023-05-21] MEDS: MAG-AL HYDROX/SIMETH 30 ML UDC PO PRN ×3 (05:24→23:42)
[2023-05-21] MEDS: FUROSEMIDE 20 MG/2 ML VIAL IVP SCH ×3 (06:00→20:24)
[2023-05-21] MEDS: cefTRIAXone 1 GM in D5W 50 ML IV SCH (09:12)
[2023-05-21] MEDS: METHYLPREDNISOLONE SOD SUCC 40 MG/ML VIAL IVP SCH ×2 (09:12→20:23)
[2023-05-22] VITALS (8 sets, daily range): BP systolic 144–165; PULSE 68–78; RESP 18–20; TEMP 97.6–98.2; O2SAT 95–100
[2023-05-22] MEDS: FUROSEMIDE 20 MG/2 ML VIAL IVP SCH ×3 (05:45→21:05)
[2023-05-22 06:04] LABS: BASOPHILS % (AUTO) 0.1 % (0.0-2.0); HEMATOCRIT 26.2 % (36-48); HEMOGLOBIN 7.9 g/dL (12.0-16.0); LYMPHOCYTES # (AUTO) 0.4 K/uL (1.0-5.5); LYMPHOCYTES % (AUTO) 3.7 % (20.5-51.5); MEAN CORPUSCULAR HEMOGLOBIN 24 pg (27-31); MEAN CORPUSCULAR HGB CONC 30 % (32-36); MEAN CORPUSCULAR VOLUME 79 fL (79.0-98.0); MONOCYTES # (AUTO) 0.3 K/uL (0.0-1.0); MONOCYTES % (AUTO) 3.3 % (1.7-9.3); NEUTROPHILS # (AUTO) 9.4 K/uL (1.8-7.7); NEUTROPHILS % (AUTO) 92.9 % (40.0-70.0); PLATELET COUNT (AUTO) 103 K/uL (130-430); RED BLOOD CELL COUNT(AUTO) 3.32 MIL/uL (4.2-6.2); RED CELL DISTRIBUTION WIDTH 21.6 % (9.0-15.0); WHITE BLOOD COUNT (AUTO) 10.1 K/uL (4.8-10.8)
[2023-05-22 06:33] LABS: ANION GAP 5 (5-15); CALCIUM 8.4 mg/dL (8.4-11.0); CARBON DIOXIDE 38 mmol/L (23-29); CHLORIDE 102 mmol/L (98-107); GLUCOSE 150 mg/dL (74-106); SODIUM SERUM 145 mmol/L (136-145); UREA NITROGEN, BLOOD 18 mg/dL (8-21)
[2023-05-22 06:42] LABS: POTASSIUM 2.9 mmol/L (3.5-5.1)
[2023-05-22] MEDS ORDERED: POTASSIUM CHLORIDE 40 MEQ in NS 250 ML IV ONE (07:00)
[2023-05-22] MEDS: METHYLPREDNISOLONE SOD SUCC 40 MG/ML VIAL IVP SCH ×2 (09:51→21:04)
[2023-05-22] MEDS: cefTRIAXone 1 GM in D5W 50 ML IV SCH (09:51)
[2023-05-23] VITALS (20 sets, daily range): BP systolic 121–181; PULSE 66–132; RESP 17–29; TEMP 97.1–98.4; O2SAT 91–100
[2023-05-23] MEDS ORDERED: AMIODARONE HCL 200 MG TABLET PO ONE (02:30)
[2023-05-23] MEDS ORDERED: AMIODARONE HCL 200 MG TABLET ONE (02:43)
[2023-05-23] MEDS ORDERED: METOPROLOL TARTRATE 5 MG/5 ML VIAL IVP ONE (04:15)
[2023-05-23] MEDS ORDERED: AMIODARONE HCL 450 MG in D5W 241 ML IV SCH (04:15)
[2023-05-23] MEDS ORDERED: ADENOSINE 6MG/2ML VIAL IVP ONE ×2 (04:15)
[2023-05-23] MEDS ORDERED: MAGNESIUM SULFATE 50 ML IV ONE (05:30)
[2023-05-23] MEDS ORDERED: KCL 20 mEq in 100 mL (PREMIX) 100 ML IV ONE (05:30)
[2023-05-23] MEDS ORDERED: METOPROLOL SUCCINATE 25 MG TAB.SR.24H (TOPROL XL) PO ONE (05:50)
[2023-05-23] MEDS: METOPROLOL SUCCINATE 25 MG TAB.SR.24H (TOPROL XL) PO SCH (06:00)
[2023-05-23 06:12] LABS: BASOPHILS % (AUTO) 0.3 % (0.0-2.0); HEMATOCRIT 27.2 % (36-48); HEMOGLOBIN 8.1 g/dL (12.0-16.0); LYMPHOCYTES # (AUTO) 0.4 K/uL (1.0-5.5); LYMPHOCYTES % (AUTO) 2.9 % (20.5-51.5); MEAN CORPUSCULAR HEMOGLOBIN 24 pg (27-31); MEAN CORPUSCULAR HGB CONC 30 % (32-36); MEAN CORPUSCULAR VOLUME 79 fL (79.0-98.0); MONOCYTES # (AUTO) 0.9 K/uL (0.0-1.0); MONOCYTES % (AUTO) 5.6 % (1.7-9.3); NEUTROPHILS # (AUTO) 13.9 K/uL (1.8-7.7); NEUTROPHILS % (AUTO) 91.2 % (40.0-70.0); PLATELET COUNT (AUTO) 103 K/uL (130-430); RED BLOOD CELL COUNT(AUTO) 3.43 MIL/uL (4.2-6.2); RED CELL DISTRIBUTION WIDTH 21.3 % (9.0-15.0); WHITE BLOOD COUNT (AUTO) 15.2 K/uL (4.8-10.8)
[2023-05-23 06:31] LABS: ANION GAP 6 (5-15); CALCIUM 8.1 mg/dL (8.4-11.0); CARBON DIOXIDE 35 mmol/L (23-29); CHLORIDE 99 mmol/L (98-107); CREATININE 1.03 mg/dL (0.55-1.30); GLUCOSE 115 mg/dL (74-106); POTASSIUM 3.3 mmol/L (3.5-5.1); SODIUM SERUM 140 mmol/L (136-145); UREA NITROGEN, BLOOD 25 mg/dL (8-21)
[2023-05-23 06:36] LABS: ALANINE AMINOTRANSFERASE 35 U/L (12-78); ALBUMIN 2.8 g/dL (3.4-4.8); ASPARTATE AMINOTRANSFERASE 40 U/L (10-37); TOTAL BILIRUBIN 0.7 mg/dL (0.0-1.0); TOTAL PROTEIN, SERUM 6.3 g/dL (6.4-8.3)
[2023-05-23] MEDS: AMIODARONE HCL 200 MG TABLET PO SCH ×2 (08:17→20:25)
[2023-05-23] MEDS: METHYLPREDNISOLONE SOD SUCC 40 MG/ML VIAL IVP SCH (08:18)
[2023-05-23] MEDS: cefTRIAXone 1 GM in D5W 50 ML IV SCH (08:18)
[2023-05-23] MEDS ORDERED: AMIODARONE HCL 200 MG TABLET PO SCH (09:00)
[2023-05-23] MEDS ORDERED: predniSONE 20 MG TABLET PO ONE (11:00)
[2023-05-23 20:04] LABS: BASOPHILS % (AUTO) 0.2 % (0.0-2.0); HEMATOCRIT 28.6 % (36-48); HEMOGLOBIN 8.5 g/dL (12.0-16.0); LYMPHOCYTES # (AUTO) 0.3 K/uL (1.0-5.5); LYMPHOCYTES % (AUTO) 2.2 % (20.5-51.5); MEAN CORPUSCULAR HEMOGLOBIN 24 pg (27-31); MEAN CORPUSCULAR HGB CONC 30 % (32-36); MONOCYTES # (AUTO) 0.5 K/uL (0.0-1.0); MONOCYTES % (AUTO) 4.1 % (1.7-9.3); NEUTROPHILS # (AUTO) 11.6 K/uL (1.8-7.7); NEUTROPHILS % (AUTO) 93.5 % (40.0-70.0); PLATELET COUNT (AUTO) 101 K/uL (130-430); RED BLOOD CELL COUNT(AUTO) 3.51 MIL/uL (4.2-6.2); RED CELL DISTRIBUTION WIDTH 21.2 % (9.0-15.0); WHITE BLOOD COUNT (AUTO) 12.5 K/uL (4.8-10.8)
[2023-05-23 20:05] LABS: MEAN CORPUSCULAR VOLUME 82 fL (79.0-98.0)
[2023-05-23] MEDS: APIXABAN 2.5 MG TABLET PO SCH (20:26)
[2023-05-24] VITALS (18 sets, daily range): BP systolic 131–181; PULSE 67–74; RESP 15–35; TEMP 97.1–98.4; O2SAT 92–99
[2023-05-24 05:37] LABS: BASOPHILS % (AUTO) 0.4 % (0.0-2.0); HEMATOCRIT 27.5 % (36-48); HEMOGLOBIN 8.3 g/dL (12.0-16.0); LYMPHOCYTES # (AUTO) 0.4 K/uL (1.0-5.5); LYMPHOCYTES % (AUTO) 3.1 % (20.5-51.5); MEAN CORPUSCULAR HEMOGLOBIN 24 pg (27-31); MEAN CORPUSCULAR HGB CONC 30 % (32-36); MEAN CORPUSCULAR VOLUME 80 fL (79.0-98.0); MONOCYTES % (AUTO) 7.2 % (1.7-9.3); NEUTROPHILS # (AUTO) 11.8 K/uL (1.8-7.7); NEUTROPHILS % (AUTO) 89.3 % (40.0-70.0); PLATELET COUNT (AUTO) 101 K/uL (130-430); RED BLOOD CELL COUNT(AUTO) 3.44 MIL/uL (4.2-6.2); RED CELL DISTRIBUTION WIDTH 21.8 % (9.0-15.0); WHITE BLOOD COUNT (AUTO) 13.2 K/uL (4.8-10.8)
[2023-05-24] MEDS: METOPROLOL SUCCINATE 25 MG TAB.SR.24H (TOPROL XL) PO SCH (05:40)
[2023-05-24 06:48] LABS: ALANINE AMINOTRANSFERASE 85 U/L (12-78); ANION GAP 7 (5-15); ASPARTATE AMINOTRANSFERASE 143 U/L (10-37); CALCIUM 8.8 mg/dL (8.4-11.0); CARBON DIOXIDE 31 mmol/L (23-29); CHLORIDE 101 mmol/L (98-107); CREATININE 1.07 mg/dL (0.55-1.30); GLUCOSE 155 mg/dL (74-106); POTASSIUM 4.4 mmol/L (3.5-5.1); SODIUM SERUM 139 mmol/L (136-145); TOTAL BILIRUBIN 0.9 mg/dL (0.0-1.0); TOTAL PROTEIN, SERUM 6.4 g/dL (6.4-8.3); UREA NITROGEN, BLOOD 35 mg/dL (8-21)
[2023-05-24] MEDS ORDERED: BUMEX 1 MG/4 ML VIAL IVP ONE (07:30)
[2023-05-24] MEDS: cefTRIAXone 1 GM in D5W 50 ML IV SCH (08:28)
[2023-05-24] MEDS: predniSONE 20 MG TABLET PO SCH (08:29)
[2023-05-24] MEDS: FUROSEMIDE 20 MG TABLET PO SCH ×2 (08:30→20:42)
[2023-05-24] MEDS: AMIODARONE HCL 200 MG TABLET PO SCH ×2 (08:30→20:42)
[2023-05-24] MEDS: APIXABAN 2.5 MG TABLET PO SCH ×2 (08:31→20:45)
[2023-05-24] MEDS: OSELTAMIVIR PHOSPHATE 30 MG CAPSULE PO SCH (08:33)
[2023-05-24] MEDS: ERTAPENEM SODIUM 1 GM in NS 50 ML IV SCH (12:11)
[2023-05-24] MEDS: hydrALAZINE HCL 20 MG/ML VIAL IVP PRN ×2 (16:28→20:43)
[2023-05-24] MEDS: MAG-AL HYDROX/SIMETH 30 ML UDC PO PRN (21:48)
[2023-05-24] MEDS: DICLOFENAC SODIUM 25 MG TABLET.DR PO SCH (23:03)
[2023-05-25 00:31] VITALS: BP_SYST 141; PULSE 63; RESP 18; TEMP 96.6; O2SAT 99
[2023-05-25 07:59] VITALS: BP_SYST 157; PULSE 67; RESP 20; TEMP 97.9; O2SAT 99
[2023-05-25 09:00] VITALS: O2SAT 99
[2023-05-25] MEDS: OSELTAMIVIR PHOSPHATE 30 MG CAPSULE PO SCH (09:11)
[2023-05-25] MEDS: predniSONE 20 MG TABLET PO SCH (09:11)
[2023-05-25] MEDS: DICLOFENAC SODIUM 25 MG TABLET.DR PO SCH (09:12)
[2023-05-25] MEDS: FUROSEMIDE 20 MG TABLET PO SCH ×2 (09:12→20:53)
[2023-05-25] MEDS: METOPROLOL SUCCINATE 50 MG TAB.SR.24H (TOPROL XL) PO SCH (09:12)
[2023-05-25] MEDS: AMIODARONE HCL 200 MG TABLET PO SCH ×2 (09:13→20:52)
[2023-05-25] MEDS: APIXABAN 2.5 MG TABLET PO SCH ×2 (09:15→20:55)
[2023-05-25] MEDS: ERTAPENEM SODIUM 1 GM in NS 50 ML IV SCH (11:54)
[2023-05-25 12:00] VITALS: BP_SYST 145; PULSE 65; RESP 19; TEMP 97.6; O2SAT 97
[2023-05-25 16:41] VITALS: BP_SYST 150; PULSE 66; RESP 20; TEMP 97.8; O2SAT 98
[2023-05-25 20:50] VITALS: BP_SYST 167; PULSE 67; RESP 18; TEMP 97.2; O2SAT 97
[2023-05-26 00:49] VITALS: BP_SYST 158; PULSE 60; RESP 17; TEMP 97.9; O2SAT 100
[2023-05-26] MEDS: MAG-AL HYDROX/SIMETH 30 ML UDC PO PRN (01:33)
[2023-05-26 05:58] LABS: BASOPHILS % (AUTO) 0.1 % (0.0-2.0); EOSINOPHILS % (AUTO) 0.1 % (0.0-4.0); HEMATOCRIT 28.1 % (36-48); HEMOGLOBIN 8.5 g/dL (12.0-16.0); LYMPHOCYTES % (AUTO) 6.9 % (20.5-51.5); MEAN CORPUSCULAR HEMOGLOBIN 24 pg (27-31); MEAN CORPUSCULAR HGB CONC 30 % (32-36); MEAN CORPUSCULAR VOLUME 80 fL (79.0-98.0); MONOCYTES # (AUTO) 1.3 K/uL (0.0-1.0); MONOCYTES % (AUTO) 9.1 % (1.7-9.3); NEUTROPHILS # (AUTO) 11.6 K/uL (1.8-7.7); PLATELET COUNT (AUTO) 99 K/uL (130-430); RED BLOOD CELL COUNT(AUTO) 3.51 MIL/uL (4.2-6.2); RED CELL DISTRIBUTION WIDTH 21.2 % (9.0-15.0); WHITE BLOOD COUNT (AUTO) 13.8 K/uL (4.8-10.8)
[2023-05-26 06:07] LABS: ANION GAP 8 (5-15); CALCIUM 9.2 mg/dL (8.4-11.0); CARBON DIOXIDE 35 mmol/L (23-29); CHLORIDE 99 mmol/L (98-107); CREATININE 1.67 mg/dL (0.55-1.30); GLUCOSE 111 mg/dL (74-106); POTASSIUM 4.3 mmol/L (3.5-5.1); SODIUM SERUM 142 mmol/L (136-145); UREA NITROGEN, BLOOD 52 mg/dL (8-21)
[2023-05-26 07:47] LABS: NEUTROPHILS % (AUTO) 83.8 % (40.0-70.0)
[2023-05-26 08:00] VITALS: BP_SYST 167; BP_SYST 193; PULSE 109; PULSE 69; RESP 18; TEMP 98.5; O2SAT 100; O2SAT 98
[2023-05-26] MEDS: OSELTAMIVIR PHOSPHATE 30 MG CAPSULE PO SCH (08:36)
[2023-05-26] MEDS: APIXABAN 2.5 MG TABLET PO SCH ×2 (08:39→21:07)
[2023-05-26] MEDS: AMIODARONE HCL 200 MG TABLET PO SCH ×2 (08:40→21:06)
[2023-05-26] MEDS: METOPROLOL SUCCINATE 50 MG TAB.SR.24H (TOPROL XL) PO SCH (08:41)
[2023-05-26] MEDS: FUROSEMIDE 20 MG TABLET PO SCH (08:41)
[2023-05-26] MEDS: DICLOFENAC SODIUM 25 MG TABLET.DR PO SCH (08:42)
[2023-05-26] MEDS: predniSONE 20 MG TABLET PO SCH (08:42)
[2023-05-26] MEDS ORDERED: metOLazone 2.5 MG TABLET PO ONE (10:15)
[2023-05-26 10:31] LABS: BLOOD GAS HCO3 34.6 mmol/L (21.0-27.0); BLOOD GAS PCO2 42.2 mmHg (35.0-45.0); BLOOD GAS PH 7.531 (7.350-7.450); BLOOD GAS PO2 132.2 mmHg (75.0-100.0)
[2023-05-26 10:32] LABS: ABG O2 SAT% ESTIMATE 98.9 % (94.0-100.0); ALLEN'S TEST POSITIVE (P); BLOOD GAS BASE EXCESS 10.7 mmol/L (-3.0-3.0)
[2023-05-26] MEDS: hydrALAZINE HCL 20 MG/ML VIAL IVP PRN (11:27)
[2023-05-26] MEDS: ERTAPENEM SODIUM 1 GM in NS 50 ML IV SCH (11:54)
[2023-05-26 11:57] VITALS: BP_SYST 190; PULSE 68; RESP 22; TEMP 97.8; O2SAT 99
[2023-05-26 17:20] VITALS: BP_SYST 163; PULSE 60; RESP 21; TEMP 98; O2SAT 98
[2023-05-26] MEDS: FUROSEMIDE 40 MG TABLET PO SCH (21:07)
[2023-05-26 22:15] VITALS: O2SAT 98
[2023-05-27 00:17] VITALS: BP_SYST 154; PULSE 60; RESP 17; TEMP 97.9; O2SAT 100
[2023-05-27 08:00] VITALS: BP_SYST 147; BP_SYST 152; PULSE 62; PULSE 89; RESP 18; TEMP 98.8; O2SAT 97; O2SAT 99
[2023-05-27] MEDS ORDERED: metOLazone 2.5 MG TABLET PO SCH (09:00)
[2023-05-27] MEDS: FUROSEMIDE 40 MG TABLET PO SCH (09:53)
[2023-05-27] MEDS: AMIODARONE HCL 200 MG TABLET PO SCH (09:53)
[2023-05-27] MEDS: APIXABAN 2.5 MG TABLET PO SCH (09:55)
[2023-05-27] MEDS: predniSONE 20 MG TABLET PO SCH (09:55)
[2023-05-27] MEDS: METOPROLOL SUCCINATE 50 MG TAB.SR.24H (TOPROL XL) PO SCH (09:55)
[2023-05-27] MEDS ORDERED: PRED20TA PO (09:56)
[2023-05-27] MEDS ORDERED: METO2.5T6 PO ×3 (09:56→10:01)
[2023-05-27] MEDS ORDERED: AMIO200T68 PO (09:56)
[2023-05-27] MEDS: DICLOFENAC SODIUM 25 MG TABLET.DR PO SCH (10:02)
[2023-05-27] MEDS: OSELTAMIVIR PHOSPHATE 30 MG CAPSULE PO SCH (10:02)
[2023-05-27 10:49] LABS: ANION GAP 6 (5-15); CALCIUM 9.3 mg/dL (8.4-11.0); CARBON DIOXIDE 37 mmol/L (23-29); CHLORIDE 95 mmol/L (98-107); GLUCOSE 140 mg/dL (74-106); POTASSIUM 3.2 mmol/L (3.5-5.1); SODIUM SERUM 138 mmol/L (136-145)
[2023-05-27 10:50] LABS: CREATININE 1.51 mg/dL (0.55-1.30); UREA NITROGEN, BLOOD 52 mg/dL (8-21)
[2023-05-27 11:47] VITALS: BP_SYST 141; PULSE 61; RESP 17; TEMP 98.4; O2SAT 97
[2023-05-27] MEDS: ERTAPENEM SODIUM 1 GM in NS 50 ML IV SCH (12:28)
[2023-05-27] MEDS ORDERED: POTASSIUM CHLORIDE 20 MEQ TAB.PRT.SR PO ONE (14:30)
[2023-05-27 14:56] VITALS: BP_SYST 158; PULSE 62; RESP 19; TEMP 98.2; O2SAT 98
[2023-05-27 16:52] VITALS: BP_SYST 130; PULSE 100; RESP 16; TEMP 98.2; O2SAT 97
== END 2023-05-27 18:00 | DRG 193 ==
LOC: SED 17:27 → STU 21:40 → SIC 05-23 04:55 → STU 05-24 14:32
PROVIDERS: ADMIT Specialist; ATTEND Specialist
DX: J10.00 Influenza due to other identified influenza virus with unspecified type of pneumonia (principal); I50.43 Acute on chronic combined systolic (congestive) and diastolic (congestive) heart failure; I13.0 Hypertensive heart and chronic kidney disease with heart failure and stage 1 through stage 4 chronic kidney disease, or unspecified chronic kidney disease; N39.0 Urinary tract infection, site not specified; J44.1 Chronic obstructive pulmonary disease with (acute) exacerbation; I47.10 Supraventricular tachycardia, unspecified; J44.0 Chronic obstructive pulmonary disease with (acute) lower respiratory infection; J18.9 Pneumonia, unspecified organism; Z20.822 Contact with and (suspected) exposure to COVID-19; E03.9 Hypothyroidism, unspecified; B96.20 Unspecified Escherichia coli [E. coli] as the cause of diseases classified elsewhere; N18.9 Chronic kidney disease, unspecified; Z79.899 Other long term (current) drug therapy; Z74.01 Bed confinement status
CPT/HCPCS: 36415; 71045; 76376; 80048; 80053; 81000; 81001; 81015; 82803; 83605; 83690; 83735; 83880; 84484; 85025; 87040; 87081; 87086; 93005; 93971; 96365; 96375; 99285; G0378; J0360; J0696; J1030; J1335; J1940; J1956; J2270; J2405; J3475; J3480; J3490; J7050; J7060; J7512; Q9967

== ENCOUNTER 2023-06-21 11:10 | Inpatient (IN) | payer BC, MEDICAID ==
[~2023-06-21] VITALS: Ht 154.9 cm; Wt 62.1 kg
[2023-06-21 11:10] VITALS: BP_SYST 140; PULSE 78; RESP 20; TEMP 97.6; O2SAT 96
[~2023-06-21 11:10] MED LIST changes: -ALEN70TA84 PO; -AMIO100T4 PO; +AMIO200T68 PO; -AMOX-423 PO; -BENZ1LOZ73 PO; -COR3.125 PO; -DICL100G60 TP; -LOPE2CAP PO; +METO2.5T6 PO; -OXYB5TAB16 PO; -POTA-197 PO; +PRED20TA PO; -SPIR25TA6 PO; -TRAM50TA2 PO; -VITD2000 PO
[2023-06-21] MEDS ORDERED: POTA-197 PO (11:27)
[2023-06-21] MEDS ORDERED: ACET325T53 PO (11:27)
[2023-06-21] MEDS ORDERED: FER300L PO (11:27)
[2023-06-21] MEDS ORDERED: TRAM50TA2 PO (11:27)
[2023-06-21 12:22] LABS: BASOPHILS # (AUTO) 0.1 K/uL (0.0-0.2); BASOPHILS % (AUTO) 0.8 % (0.0-2.0); EOSINOPHILS % (AUTO) 0.4 % (0.0-4.0); LYMPHOCYTES # (AUTO) 0.7 K/uL (1.0-5.5); LYMPHOCYTES % (AUTO) 7.4 % (20.5-51.5); MEAN CORPUSCULAR HEMOGLOBIN 26 pg (27-31); MEAN CORPUSCULAR HGB CONC 30 % (32-36); MEAN CORPUSCULAR VOLUME 86 fL (79.0-98.0); MONOCYTES # (AUTO) 0.6 K/uL (0.0-1.0); MONOCYTES % (AUTO) 6.4 % (1.7-9.3); NEUTROPHILS # (AUTO) 8.6 K/uL (1.8-7.7); PLATELET COUNT (AUTO) 108 K/uL (130-430); RED BLOOD CELL COUNT(AUTO) 2.52 MIL/uL (4.2-6.2); RED CELL DISTRIBUTION WIDTH 25.6 % (9.0-15.0); WHITE BLOOD COUNT (AUTO) 10.1 K/uL (4.8-10.8)
[2023-06-21 12:35] LABS: HEMATOCRIT 21.6 % (36-48); HEMOGLOBIN 6.5 g/dL (12.0-16.0)
[2023-06-21 12:36] LABS: PROTHROMBIN TIME 10.3 SECS (9.5-12.5)
[2023-06-21 12:37] LABS: ALANINE AMINOTRANSFERASE 84 U/L (12-78); ALBUMIN 2.6 g/dL (3.4-4.8); AMYLASE 80 U/L (0-100); ANION GAP 3 (5-15); ASPARTATE AMINOTRANSFERASE 102 U/L (10-37); CALCIUM 7.7 mg/dL (8.4-11.0); CARBON DIOXIDE 33 mmol/L (23-29); CHLORIDE 103 mmol/L (98-107); CREATININE 0.88 mg/dL (0.55-1.30); GLUCOSE 124 mg/dL (74-106); LIPASE 93 U/L (16-77); SODIUM SERUM 139 mmol/L (136-145); TOTAL BILIRUBIN 0.5 mg/dL (0.0-1.0); UREA NITROGEN, BLOOD 22 mg/dL (8-21)
[2023-06-21] MEDS ORDERED: ONDANSETRON HCL 4 MG/2 ML VIAL IVP PRN (13:15)
[2023-06-21] MEDS ORDERED: HYDROcodone/ACETAMIN 5-325 MG TAB (NORCO/ VICODIN) PO PRN (13:15)
[2023-06-21] MEDS ORDERED: MORPHINE 2 MG/ML INJ. SYRINGE IVP PRN (13:15)
[2023-06-21] MEDS ORDERED: ACETAMINOPHEN 325 MG TABLET PO PRN (13:15)
[2023-06-21] MEDS ORDERED: PANTOPRAZOLE SODIUM 40 MG/VIAL (PROTONIX) IVP ONE (13:30)
[2023-06-21] MEDS ORDERED: POTASSIUM CHLORIDE 40 MEQ, LIDOCAINE JECT 2% PF 100 MG 50 MG in NS 250 ML IV ONE (18:00)
[2023-06-21] MEDS: ACETAMINOPHEN 325 MG TABLET PO PRN (21:21)
[2023-06-21] MEDS: PANTOPRAZOLE SODIUM 40 MG/VIAL (PROTONIX) IVP SCH (22:36)
[2023-06-22 01:20] LABS: HEMATOCRIT 31.5 % (36-48); HEMOGLOBIN 9.8 g/dL (12.0-16.0)
[2023-06-22] MEDS: LEVOTHYROXINE SODIUM 0.088 MG TABLET PO SCH (07:40)
[2023-06-22 09:08] LABS: BASOPHILS % (AUTO) 0.4 % (0.0-2.0); EOSINOPHILS % (AUTO) 0.4 % (0.0-4.0); HEMOGLOBIN 9.6 g/dL (12.0-16.0); MEAN CORPUSCULAR HEMOGLOBIN 26 pg (27-31); MEAN CORPUSCULAR HGB CONC 31 % (32-36); MEAN CORPUSCULAR VOLUME 83 fL (79.0-98.0); MONOCYTES # (AUTO) 0.5 K/uL (0.0-1.0); MONOCYTES % (AUTO) 6.2 % (1.7-9.3); NEUTROPHILS # (AUTO) 7.1 K/uL (1.8-7.7); PLATELET COUNT (AUTO) 97 K/uL (130-430); RED BLOOD CELL COUNT(AUTO) 3.75 MIL/uL (4.2-6.2); RED CELL DISTRIBUTION WIDTH 21.7 % (9.0-15.0); WHITE BLOOD COUNT (AUTO) 8.7 K/uL (4.8-10.8)
[2023-06-22 09:37] LABS: ALANINE AMINOTRANSFERASE 87 U/L (12-78); ALBUMIN 2.5 g/dL (3.4-4.8); ANION GAP 3 (5-15); ASPARTATE AMINOTRANSFERASE 97 U/L (10-37); CALCIUM 7.3 mg/dL (8.4-11.0); CARBON DIOXIDE 30 mmol/L (23-29); CHLORIDE 104 mmol/L (98-107); CREATININE 0.93 mg/dL (0.55-1.30); GLUCOSE 85 mg/dL (74-106); PHOSPHORUS 2.3 mg/dL (2.7-4.5); POTASSIUM 3.9 mmol/L (3.5-5.1); SODIUM SERUM 137 mmol/L (136-145); TOTAL BILIRUBIN 0.8 mg/dL (0.0-1.0); TOTAL PROTEIN, SERUM 5.8 g/dL (6.4-8.3); UREA NITROGEN, BLOOD 21 mg/dL (8-21)
[2023-06-22] MEDS: PANTOPRAZOLE SODIUM 40 MG/VIAL (PROTONIX) IVP SCH ×2 (11:24→20:33)
[2023-06-22] MEDS ORDERED: dilTIAZem HCL IVP 5 MG/ML VIAL IVP PRN (18:00)
[2023-06-22 18:49] VITALS: BP_SYST 132; PULSE 104; RESP 18; TEMP 97.8
[2023-06-22 19:00] VITALS: BP_SYST 111; PULSE 140; RESP 20; TEMP 99; O2SAT 96
[2023-06-22] MEDS: APIXABAN 2.5 MG TABLET PO SCH (20:40)
[2023-06-23] VITALS (13 sets, daily range): BP systolic 105–126; PULSE 94–109; RESP 16–20; TEMP 96.7–99.8; O2SAT 95–99
[2023-06-23] MEDS ORDERED: guaiFENesin/DEXTROMETHORPHAN 118 ML PO PRN (00:15)
[2023-06-23] MEDS ORDERED: IPRATROPIUM/ALBUTEROL SULFATE 3 ML AMPUL.NEB (DUONEB) INH PRN (00:45)
[2023-06-23] MEDS ORDERED: guaiFENesin/DEXTROMETHORPHAN 10 ML UDC ONE (01:10)
[2023-06-23] MEDS: IPRATROPIUM/ALBUTEROL SULFATE 3 ML AMPUL.NEB (DUONEB) INH SCH ×6 (01:20→20:18)
[2023-06-23 05:43] LABS: HEMATOCRIT 32.7 % (36-48); HEMOGLOBIN 9.9 g/dL (12.0-16.0); MEAN CORPUSCULAR HEMOGLOBIN 25 pg (27-31); MEAN CORPUSCULAR HGB CONC 30 % (32-36); MEAN CORPUSCULAR VOLUME 83 fL (79.0-98.0); PLATELET COUNT (AUTO) 104 K/uL (130-430); RED BLOOD CELL COUNT(AUTO) 3.94 MIL/uL (4.2-6.2); RED CELL DISTRIBUTION WIDTH 22.2 % (9.0-15.0); RETICULOCYTE COUNT 4.5 % (0.5-1.5); WHITE BLOOD COUNT (AUTO) 11.1 K/uL (4.8-10.8)
[2023-06-23] MEDS: LEVOTHYROXINE SODIUM 0.088 MG TABLET PO SCH (06:00)
[2023-06-23 06:01] LABS: ALANINE AMINOTRANSFERASE 73 U/L (12-78); ALBUMIN 2.2 g/dL (3.4-4.8); ANION GAP 8 (5-15); ASPARTATE AMINOTRANSFERASE 93 U/L (10-37); CALCIUM 8.1 mg/dL (8.4-11.0); CARBON DIOXIDE 27 mmol/L (23-29); CHLORIDE 108 mmol/L (98-107); CREATININE 1.12 mg/dL (0.55-1.30); GLUCOSE 56 mg/dL (74-106); POTASSIUM 3.6 mmol/L (3.5-5.1); SODIUM SERUM 143 mmol/L (136-145); TOTAL BILIRUBIN 1.3 mg/dL (0.0-1.0); TOTAL PROTEIN, SERUM 5.7 g/dL (6.4-8.3); UREA NITROGEN, BLOOD 16 mg/dL (8-21)
[2023-06-23] MEDS ORDERED: dilTIAZem HCL IVP 5 MG/ML VIAL IVP PRN ×2 (07:15)
[2023-06-23 08:05] LABS: ATYPICAL LYMPHOCYTES % 2 % (0-0); BAND % (MANUAL) 5 % (0-6); BASOPHILS % (MANUAL) 0 % (0-2); CORRECTED WHITE BLOOD COUNT 10.5 K/uL (4.5-11.0); EOSINOPHILS % (MANUAL) 0 % (0-7); LYMPHOCYTES % (MANUAL) 14 % (20-46); METAMYELOCYTES % 2 % (0-0); MONOCYTES % (MANUAL) 3 % (0-11); PLATELET ESTIMATE DECREASED (ADEQUATE)
[2023-06-23 08:06] LABS: ANISOCYTOSIS 2+; HYPOCHROMASIA SLIGHT; OVALOCYTES FEW; POLYCHROMASIA 1+
[2023-06-23] MEDS: PANTOPRAZOLE SODIUM 40 MG/VIAL (PROTONIX) IVP SCH ×2 (09:01→22:27)
[2023-06-23] MEDS: APIXABAN 2.5 MG TABLET PO SCH (09:07)
[2023-06-23] MEDS ORDERED: FUROSEMIDE 40 MG/4 ML VIAL IVP ONE (09:45)
[2023-06-23] MEDS ORDERED: AMIODARONE HCL 200 MG TABLET PO ONE (10:00)
[2023-06-23] MEDS ORDERED: DIGOXIN 0.5 MG/2 ML AMP IVP ONE ×2 (11:00→23:00)
[2023-06-23 15:48] LABS: TOTAL IRON BIND. CAPACITY 230 ug/dL (250-450)
[2023-06-23] MEDS ORDERED: DIGOXIN 0.125 MG TABLET PO ONE (17:00)
[2023-06-23] MEDS: HYDROcodone/ACETAMIN 5-325 MG TAB (NORCO/ VICODIN) PO PRN (17:51)
[2023-06-23] MEDS: guaiFENesin/DEXTROMETHORPHAN 10 ML UDC PO PRN ×2 (17:59→22:29)
[2023-06-23] MEDS: AMIODARONE HCL 200 MG TABLET PO SCH (22:28)
[2023-06-24] VITALS (12 sets, daily range): BP systolic 99–123; PULSE 86–120; RESP 16–20; TEMP 98.1–98.8; O2SAT 96–100
[2023-06-24] MEDS: IPRATROPIUM/ALBUTEROL SULFATE 3 ML AMPUL.NEB (DUONEB) INH SCH ×7 (01:55→23:36)
[2023-06-24] MEDS: LEVOTHYROXINE SODIUM 0.088 MG TABLET PO SCH (05:27)
[2023-06-24] MEDS: HYDROcodone/ACETAMIN 5-325 MG TAB (NORCO/ VICODIN) PO PRN (05:29)
[2023-06-24] MEDS: guaiFENesin/DEXTROMETHORPHAN 10 ML UDC PO PRN (05:30)
[2023-06-24 08:06] LABS: FERRITIN 344 ng/mL (15-150); HAPTOGLOBIN 167 mg/dL (42-346)
[2023-06-24] MEDS ORDERED: FUROSEMIDE 40 MG/4 ML VIAL IVP SCH (09:00)
[2023-06-24] MEDS: AMIODARONE HCL 200 MG TABLET PO SCH ×2 (09:13→22:39)
[2023-06-24] MEDS: PANTOPRAZOLE SODIUM 40 MG/VIAL (PROTONIX) IVP SCH ×2 (10:04→22:38)
[2023-06-24 10:07] LABS: FOLATE (FOLIC ACID) >20.0 ng/mL (>3.0)
[2023-06-24 10:38] LABS: BASOPHILS % (AUTO) 0.4 % (0.0-2.0); EOSINOPHILS # (AUTO) 0.1 K/uL (0.0-0.4); EOSINOPHILS % (AUTO) 0.7 % (0.0-4.0); HEMATOCRIT 34.8 % (36-48); HEMOGLOBIN 10.7 g/dL (12.0-16.0); LYMPHOCYTES # (AUTO) 0.4 K/uL (1.0-5.5); LYMPHOCYTES % (AUTO) 5.9 % (20.5-51.5); MEAN CORPUSCULAR HEMOGLOBIN 26 pg (27-31); MEAN CORPUSCULAR HGB CONC 31 % (32-36); MEAN CORPUSCULAR VOLUME 84 fL (79.0-98.0); MONOCYTES # (AUTO) 0.4 K/uL (0.0-1.0); MONOCYTES % (AUTO) 4.9 % (1.7-9.3); NEUTROPHILS # (AUTO) 6.4 K/uL (1.8-7.7); PLATELET COUNT (AUTO) 96 K/uL (130-430); RED BLOOD CELL COUNT(AUTO) 4.17 MIL/uL (4.2-6.2); RED CELL DISTRIBUTION WIDTH 22.7 % (9.0-15.0); WHITE BLOOD COUNT (AUTO) 7.2 K/uL (4.8-10.8)
[2023-06-24 10:39] LABS: NEUTROPHILS % (AUTO) 88.1 % (40.0-70.0)
[2023-06-24 11:15] LABS: ANION GAP 11 (5-15); CALCIUM 8.9 mg/dL (8.4-11.0); CARBON DIOXIDE 29 mmol/L (23-29); CHLORIDE 105 mmol/L (98-107); CREATININE 1.45 mg/dL (0.55-1.30); FREE T4 (FREE THYROXINE) 0.9 ng/dL (0.6-1.6); GLUCOSE 85 mg/dL (74-106); POTASSIUM 3.5 mmol/L (3.5-5.1); SODIUM SERUM 145 mmol/L (136-145); THYROID STIMULATING HORMONE 0.56 uIu/mL (0.34-4.82); UREA NITROGEN, BLOOD 14 mg/dL (8-21)
[2023-06-24 14:07] LABS: HEPATITIS A AB, IgM Negative (Negative); HEPATITIS B CORE AB, IgM Negative (Negative); HEPATITIS B SURFACE AG Negative (Negative)
[2023-06-25] VITALS (10 sets, daily range): BP systolic 97–121; PULSE 91–103; RESP 18–20; TEMP 97.5–99.5; O2SAT 98–100
[2023-06-25] MEDS: IPRATROPIUM/ALBUTEROL SULFATE 3 ML AMPUL.NEB (DUONEB) INH SCH ×4 (03:30→15:31)
[2023-06-25] MEDS: LEVOTHYROXINE SODIUM 0.088 MG TABLET PO SCH (06:00)
[2023-06-25] MEDS: ACETAMINOPHEN 325 MG TABLET PO PRN (06:16)
[2023-06-25 06:34] LABS: BASOPHILS % (AUTO) 0.3 % (0.0-2.0); EOSINOPHILS # (AUTO) 0.1 K/uL (0.0-0.4); HEMATOCRIT 32.6 % (36-48); HEMOGLOBIN 10.1 g/dL (12.0-16.0); LYMPHOCYTES # (AUTO) 0.6 K/uL (1.0-5.5); LYMPHOCYTES % (AUTO) 7.4 % (20.5-51.5); MEAN CORPUSCULAR HEMOGLOBIN 25 pg (27-31); MEAN CORPUSCULAR HGB CONC 31 % (32-36); MONOCYTES # (AUTO) 0.6 K/uL (0.0-1.0); MONOCYTES % (AUTO) 7.5 % (1.7-9.3); NEUTROPHILS # (AUTO) 6.2 K/uL (1.8-7.7); NEUTROPHILS % (AUTO) 83.8 % (40.0-70.0); PLATELET COUNT (AUTO) 101 K/uL (130-430); RED CELL DISTRIBUTION WIDTH 21.8 % (9.0-15.0); WHITE BLOOD COUNT (AUTO) 7.4 K/uL (4.8-10.8)
[2023-06-25 07:16] LABS: ANION GAP 10 (5-15); CARBON DIOXIDE 32 mmol/L (23-29); CHLORIDE 103 mmol/L (98-107); CREATININE 1.48 mg/dL (0.55-1.30); GLUCOSE 74 mg/dL (74-106); POTASSIUM 3.3 mmol/L (3.5-5.1); SODIUM SERUM 145 mmol/L (136-145); UREA NITROGEN, BLOOD 20 mg/dL (8-21)
[2023-06-25] MEDS ORDERED: POTASSIUM CHLORIDE 20 MEQ TABLET.ER PO ONE (09:00)
[2023-06-25] MEDS ORDERED: FUROSEMIDE 20 MG TABLET PO SCH (09:00)
[2023-06-25] MEDS ORDERED: DIGOXIN 0.5 MG/2 ML AMP IVP SCH (09:00)
[2023-06-25] MEDS: AMIODARONE HCL 200 MG TABLET PO SCH (09:09)
[2023-06-25] MEDS: PANTOPRAZOLE SODIUM 40 MG/VIAL (PROTONIX) IVP SCH (09:53)
[2023-06-25 09:54] LABS: MEAN CORPUSCULAR VOLUME 82 fL (79.0-98.0)
[2023-06-25 12:56] LABS: HYPOCHROMASIA 1+; ROULEAU 1+
[2023-06-25] MEDS ORDERED: PRO40 PO (13:03)
[2023-06-25] MEDS ORDERED: DIGO250T PO (13:03)
[2023-06-25] MEDS ORDERED: AMIO200T68 PO (13:03)
[2023-06-28 11:08] LABS: HEPATITIS C VIRUS AB Reactive (Non Reactive)
== END 2023-06-25 18:37 | DRG 377 ==
LOC: SED 11:10 → STU 13:10 → SMU 06-25 12:03
PROVIDERS: ADMIT Family Medicine; ATTEND Family Medicine
PROC: 30233N1 Transfusion of Nonautologous Red Blood Cells into Peripheral Vein, Percutaneous Approach (ICD-10-PCS; principal; 2023-06-21)
DX: K92.2 Gastrointestinal hemorrhage, unspecified (principal); E43 Unspecified severe protein-calorie malnutrition; I50.33 Acute on chronic diastolic (congestive) heart failure; N17.9 Acute kidney failure, unspecified; J96.11 Chronic respiratory failure with hypoxia; D62 Acute posthemorrhagic anemia; I13.0 Hypertensive heart and chronic kidney disease with heart failure and stage 1 through stage 4 chronic kidney disease, or unspecified chronic kidney disease; E23.0 Hypopituitarism; D68.9 Coagulation defect, unspecified; D69.6 Thrombocytopenia, unspecified; E87.6 Hypokalemia; E83.51 Hypocalcemia; J44.9 Chronic obstructive pulmonary disease, unspecified; D72.829 Elevated white blood cell count, unspecified; E03.9 Hypothyroidism, unspecified; Z68.25 Body mass index [BMI] 25.0-25.9, adult; E87.5 Hyperkalemia; E88.09 Other disorders of plasma-protein metabolism, not elsewhere classified; E83.52 Hypercalcemia; N18.9 Chronic kidney disease, unspecified; I48.0 Paroxysmal atrial fibrillation; I25.10 Atherosclerotic heart disease of native coronary artery without angina pectoris; Z86.718 Personal history of other venous thrombosis and embolism; Z87.891 Personal history of nicotine dependence; Z90.710 Acquired absence of both cervix and uterus; Z90.49 Acquired absence of other specified parts of digestive tract
CPT/HCPCS: 36415; 71045; 73502; 76770; 80048; 80053; 80074; 82150; 82607; 82728; 82746; 83010; 83540; 83550; 83605; 83690; 83735; 83880; 84100; 84439; 84443; 85007; 85018; 85025; 85027; 85044; 85610-TC; 85730-TC; 86886; 86900; 86901; 86920; 93005; 94640; 94760; 96365; 96375; 97110-GP; 97163-GP; 97530-GP; 99285; C9113; G0378; J1160; J1940; J2405; J3480; J3490; J7050; J7060; P9021